=== PATIENT | male | born 1975 | race Hispanic/Latino ===

== ENCOUNTER 2019-06-27 21:05 | Emergency (ER) | payer SELFPAY ==
[2019-06-27] MEDS ORDERED: SODIUM CHLORIDE 0.9% 1000ML 1,000 ML IVS ONE (21:14)
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
[2019-06-28] MEDS ORDERED: POTASSIUM CHLORIDE ELIXIR 20 MEQ/15 ML UD PO ONE (02:02)
[2019-06-28 03:47] VITALS: BP 106/61; TEMP 97.3; O2SAT 94
== END 2019-06-28 03:40 ==
LOC: ER 21:05
DX: R51 Headache (principal); M79.662 Pain in left lower leg; E87.6 Hypokalemia; G47.33 Obstructive sleep apnea (adult) (pediatric); F10.129 Alcohol abuse with intoxication, unspecified; I10 Essential (primary) hypertension; E11.9 Type 2 diabetes mellitus without complications; I49.9 Cardiac arrhythmia, unspecified; V49.40XA Driver injured in collision with unspecified motor vehicles in traffic accident, initial encounter; Y92.410 Unspecified street and highway as the place of occurrence of the external cause; Z87.891 Personal history of nicotine dependence
CPT/HCPCS: 70450; 70480; 71045; 72125; 73551; 73590; 74176; 80053; 80307; 80320; 81001; 83735; 85025; 85610; 85730; J7030